=== PATIENT | male | born 1970 | race Caucasian/White ===

== ENCOUNTER → 2016-12-02 | Outpatient (REF) | payer BC ==
[2016-12-02 21:05] LABS: BACTERIA, URINE SMALL AMOUNT; HYALINE CAST, URINE NONE SEEN /lpf (0-1); MICROSCOPIC EXAM PERFORMED; RBC, URINE NONE SEEN /hpf (0-3); SQUAMOUS EPITHELIAL CELL URINE SMALL AMOUNT /hpf (SMALL AMT); WBC, URINE 0-1 /hpf (0-3)
== END ==
LOC: M LAB REF 16:52
PROVIDERS: ATTEND Internal Medicine Nephrology
DX: E11.22 Type 2 diabetes mellitus with diabetic chronic kidney disease (principal); I10 Essential (primary) hypertension; R80.9 Proteinuria, unspecified

== ENCOUNTER → 2017-04-01 | Outpatient (REF) | payer BC ==
[2017-04-02 14:11] LABS: FOLATE 21.9 NG/ML; VITAMIN B12 LEVEL > 2000 PG/ML
== END ==
LOC: M LAB REF 13:24
PROVIDERS: ATTEND Internal Medicine Nephrology
DX: E11.22 Type 2 diabetes mellitus with diabetic chronic kidney disease (principal)

== ENCOUNTER 2017-07-13 14:50 | Emergency (ER) | payer BC, OTHER ==
[~2017-07-13] VITALS: Ht 175.3 cm; Wt 112.7 kg
[2017-07-13 14:51] VITALS: BP 169/94
[2017-07-13] MEDS ORDERED: SIMV20TA2 PO (15:01)
[2017-07-13] MEDS ORDERED: LISI40TAB PO (15:01)
[2017-07-13] MEDS ORDERED: METF10004 PO (15:02)
[2017-07-13] MEDS ORDERED: GLIP2.5T6 PO (15:02)
[2017-07-13] MEDS ORDERED: CIPROFLOXACIN 500 MG TAB PO ONE (16:15)
== END 2017-07-13 16:35 | disposition home or self-care (01) ==
LOC: M ED 14:50
DX: T75.89XA Other specified effects of external causes, initial encounter (principal); Y92.89 Other specified places as the place of occurrence of the external cause; Y93.89 Activity, other specified; Y99.0 Civilian activity done for income or pay

== ENCOUNTER → 2021-05-24 | Outpatient (REF) | payer BC ==
[~2021-05-24] MED LIST: GLIP2.5T6 PO; LISI40TA4 PO; METF10004 PO; SIMV20TA22 PO
== END ==
LOC: M LAB REF 17:42
PROVIDERS: ATTEND Internal Medicine Nephrology
DX: N18.31 Chronic kidney disease, stage 3a (principal)